=== PATIENT | female | born 1940 | race Caucasian/White ===

== ENCOUNTER → 2020-10-24 | Outpatient (CLI) | payer MEDICARE, OTHER | LOC: RAD 11:46 | DX: R05 Cough (principal) | CPT/HCPCS: 71046 ==

== ENCOUNTER → 2021-07-13 | Outpatient (CLI) | payer MEDICARE, OTHER | LOC: KOH-I 11:36 | DX: R05.3 Chronic cough (principal); R91.8 Other nonspecific abnormal finding of lung field | CPT/HCPCS: 71046 ==

== ENCOUNTER → 2021-08-24 | Outpatient (CLI) | payer MEDICARE, OTHER | LOC: KOH-I 09:00 | DX: J15.9 Unspecified bacterial pneumonia (principal); R91.8 Other nonspecific abnormal finding of lung field | CPT/HCPCS: 71046 ==

== ENCOUNTER → 2021-09-18 | Outpatient (CLI) | payer MEDICARE, OTHER | LOC: MRI 09:24 | DX: R06.09 Other forms of dyspnea (principal); R93.89 Abnormal findings on diagnostic imaging of other specified body structures; R25.1 Tremor, unspecified | CPT/HCPCS: ECHO; 70553; 71250; 93306; A9577 ==